=== PATIENT | female | born 1960 | race Caucasian/White ===

== ENCOUNTER → 2018-07-08 | Outpatient (CLI) | payer OTHER ==
[~2018-07-08] MED LIST: IOPAMIDOL (ISOVUE-300) 100 ML BTL ONE
== END ==
LOC: CIMAGING 09:01
PROVIDERS: ATTEND Urology
DX: R31.29 Other microscopic hematuria (principal); Q89.8 Other specified congenital malformations; M43.16 Spondylolisthesis, lumbar region
CPT/HCPCS: 74178-PO; Q9967